=== PATIENT | male | born 1995 | race American Indian/Alaskan Native ===

== ENCOUNTER 2022-01-13 13:31 | Emergency (ER) | payer OTHER ==
--- NOTE | 2022-01-13 14:49 | Emergency Department Report ---
ED ENT HPI - General Chief complaint: Sore Throat Stated complaint: SORE THROAT Time Seen by Provider: 01/13/22 14:25 Source: patient Mode of arrival: Ambulatory Limitations: No Limitations - History of Present Illness Initial comments: 26 yom with no pmh presents to ed for evaluation of sore throat and mouth pain. He states that the past 3 days, he has noticed some white patches to roof of his mouth and back of his throat that are painful. He states that he had the same problem several months ago that improved after taking some ibuprofen, but vern ekaterina has not resolved that problem this time. He denies any recent antibiotic use. complaint: sore throat, other (sore mouth) -: Gradual, days(s) (3-4) Location: tongue, throat Severity: moderate Severity scale (0 -10): 6 Quality: aching Consistency: constant Improves with: NSAID Associated Symptoms: pain with swallowing, sore throat. denies: fever, gum swelling - Related Data Previous Rx's Medication Instructions Recorded Last Taken Type Nystatin [Nystatin SUSP] 5 ml PO QID #120 ml 01/13/22 Unknown Rx Allergies Allergy/AdvReac Type Severity Reaction Status Date / Time No Known Allergies Allergy Unverified 01/13/22 14:05 ED Dental HPI - General Chief complaint: Sore Throat Stated complaint: SORE THROAT Time Seen by Provider: 01/13/22 14:25 Source: patient Mode of arrival: Ambulatory Limitations: No Limitations - Related Data Previous Rx's Medication Instructions Recorded Last Taken Type Nystatin [Nystatin SUSP] 5 ml PO QID #120 ml 01/13/22 Unknown Rx Allergies Allergy/AdvReac Type Severity Reaction Status Date / Time No Known Allergies Allergy Unverified 01/13/22 14:05 ED Review of Systems ROS: Stated complaint: SORE THROAT Other details as noted in HPI Comment: All other systems reviewed and negative Constitutional: denies: chills, diaphoresis, fever, malaise, weakness Eyes: denies: eye pain, eye discharge ENT: throat pain. denies: ear pain, dental pain, hearing loss, congestion Respiratory: cough. denies: orthopnea, shortness of breath, SOB with exertion, SOB at rest, stridor, wheezing Cardiovascular: denies: chest pain, palpitations, dyspnea on exertion, orthopnea, edema, syncope, paroxysmal nocturnal dyspnea Endocrine: no symptoms reported Gastrointestinal: denies: abdominal pain, nausea, vomiting, diarrhea, constipation Genitourinary: denies: urgency, dysuria, frequency, hematuria, discharge Musculoskeletal: denies: back pain Skin: denies: rash, lesions Neurological: denies: headache, weakness, numbness, paresthesias Psychiatric: denies: anxiety, depression Hematological/Lymphatic: denies: easy bleeding, easy bruising ED Past Medical Hx - Medications Home Medications: Home Medications Medication Instructions Recorded Confirmed Last Taken Type Nystatin [Nystatin SUSP] 5 ml PO QID #120 ml 01/13/22 Unknown Rx ED Physical Exam - General Limitations: No Limitations General appearance: alert, in no apparent distress - Head Head exam: Present: atraumatic, normocephalic - Eye Eye exam: Present: normal appearance. Absent: conjunctival injection - ENT ENT exam: Absent: normal exam, normal orophraynx - Expanded ENT Exam Expanded Mouth exam: Present: other (white patches noted throughout mouth to upper palate, oropharynx and tongue. ). Absent: tongue normal - Respiratory Respiratory exam: Present: normal lung sounds bilaterally. Absent: respiratory distress - Cardiovascular Cardiovascular Exam: Present: regular rate, normal heart sounds - GI/Abdominal GI/Abdominal exam: Present: soft, normal bowel sounds. Absent: distended, tenderness, guarding, rebound - Extremities Exam Extremities exam: Present: normal inspection. Absent: full ROM - Back Exam Back exam: Present: normal inspection - Neurological Exam Neurological exam: Present: alert, oriented X3 - Psychiatric Psychiatric exam: Present: normal affect, normal mood - Skin Skin exam: Present: warm, dry, intact, normal color ED Course Vital Signs 01/13/22 01/13/22 14:04 16:22 Temperature 98.2 F 98.2 F Pulse Rate 100 H 65 Respiratory 16 Rate Blood Pressure 127/93 124/62 [Right] O2 Sat by Pulse 99 Oximetry ED Medical Decision Making - Medical Decision Making 26 yom with no pmh presents to ed for evaluation of sore throat and mouth pain. He states that the past 3 days, he has noticed some white patches to roof of his mouth and back of his throat that are painful. He states that he had the same problem several months ago that improved after taking some ibuprofen, but ibuprofen has not resolved that problem this time. He denies any recent antibiotic use. Exam compatible with oral judy. Patient will be treated with Nystatin suspension. He was advised to take medication as prescribed and follow up with pcp for further evaluation. He verbalized understanding of and agreement with plan of care. Critical care attestation.: If time is entered above; I have spent that time in minutes in the direct care of this critically ill patient, excluding procedure time. ED Disposition Clinical Impression: Oral judy Disposition: 01 HOME / SELF CARE / HOMELESS Is pt being admited?: No Does the pt Need Aspirin: No Condition: Stable Instructions: Oral Thrush, Adult, [id number] Additional Instructions: Take medications as prescribed. Follow-up with primary care provider for further evaluation. Prescriptions: Nystatin [Nystatin SUSP] 5 ml PO QID #120 ml Referrals: MICHELL MACK MD [Referring] - 3-5 Days Time of Disposition: 14:49
[2022-01-13 16:24] VITALS: BP 124/62
== END 2022-01-13 16:23 | disposition home or self-care (01) ==
LOC: ED 13:31
DX: B37.0 Candidal stomatitis (principal)
CPT/HCPCS: 87116; 87430; 99283

== ENCOUNTER 2022-03-27 15:33 | Emergency (ER) | payer SELFPAY ==
[2022-03-27 15:50] VITALS: BP 129/84
== END 2022-03-27 17:00 | disposition left against medical advice (07) ==
LOC: ED 15:33
DX: Z76.0 Encounter for issue of repeat prescription (principal); Z53.21 Procedure and treatment not carried out due to patient leaving prior to being seen by health care provider